=== PATIENT | male | born 1955 | race American Indian/Alaskan Native ===

== ENCOUNTER 2016-11-15 21:24 | Emergency (ER) | payer MEDICARE ==
[2016-11-15 22:17] LABS: Eosinophils % (Auto) 7.1 % (0.0-4.3); Hematocrit 44.4 % (35.5-45.6); Mean Corpuscular HGB Conc 34 % (32-34); Mean Corpuscular Hemoglobin 31 pg (28-32); Mean Corpuscular Volume 92 fl (84-94); Platelet Count 196 K/mm3 (140-440); Red Blood Count 4.82 M/mm3 (3.65-5.03); Red Cell Distribution Width 14.3 % (13.2-15.2); White Blood Count 7.8 K/mm3 (4.5-11.0)
[2016-11-15 22:35] LABS: Anion Gap 17 mmol/L; BUN/Creatinine Ratio 24.28; Blood Urea Nitrogen 17 mg/dL (9-20); Calcium 8.6 mg/dL (8.4-10.2); Carbon Dioxide 25 mmol/L (22-30); Chloride 100.7 mmol/L (98-107); Glucose 124 mg/dL (75-100); Potassium 3.9 mmol/L (3.6-5.0); Sodium 139 mmol/L (137-145)
[2016-11-15 22:53] LABS: Urine Drugs of Abuse Note Disclamer
[2016-11-15 23:02] LABS: Bilirubin,Urine NEG (Negative); Blood,Urine SM (Negative); Ketones,Urine NEG (Negative); Leukocyte Esterase,Urine NEG (Negative); Mucus,Urine FEW /HPF; Nitrite,Urine NEG (Negative); Protein,Urine <15 mg/dL mg/dL (Negative); Urobilinogen,Urine < 2.0 mg/dL (<2.0)
--- NOTE | 2016-11-16 13:14 | Emergency Department Report ---
ED General Adult HPI - General Chief complaint: Psych Stated complaint: MH EVAL/HEAD PAIN Time Seen by Provider: 11/16/16 06:25 Source: patient Mode of arrival: Ambulatory Limitations: No Limitations - History of Present Illness Initial comments: Patient tells me he "just needs a new home". He is schizophrenic. He states that he has a variety of obviously chronic somatic symptoms. He complains of a headache since "1973". He also states he has a lump below his sternum. He does not complain of chest pain shortness of breath or any other associated symptoms. -: unknown Location: head, chest (chronic chronic chest "lump") Quality: other Consistency: intermittent Improves with: none Worsens with: none Associated Symptoms: denies other symptoms Treatments Prior to Arrival: none - Related Data Previous Rx's Medication Instructions Recorded Last Taken Type Azithromycin [Zithromax TAB] 500 mg PO QDAY #3 tablet 02/16/15 Unknown Rx Ondansetron [Zofran Odt] 4 mg PO Q4H PRN #10 tab.rapdis 02/16/15 Unknown Rx HYDROcodone/APAP 5-325 [[place] 1 each PO Q6HR PRN #18 tablet 04/27/15 Unknown Rx 5/325] Ibuprofen [Motrin] 800 mg PO Q8HR PRN #30 tablet 04/27/15 Unknown Rx Allergies Allergy/AdvReac Type Severity Reaction Status Date / Time No Known Allergies Allergy Unverified 02/16/15 08:20 ED Review of Systems ROS: Stated complaint: MH EVAL/HEAD PAIN Other details as noted in HPI Constitutional: denies: chills, fever Eyes: denies: eye pain, eye discharge, vision change ENT: denies: ear pain, throat pain Respiratory: denies: cough, shortness of breath, wheezing Cardiovascular: denies: chest pain, palpitations Endocrine: no symptoms reported Gastrointestinal: denies: abdominal pain, nausea, diarrhea Genitourinary: denies: urgency, dysuria Musculoskeletal: denies: back pain, joint swelling, arthralgia Skin: denies: rash, lesions Neurological: denies: headache, weakness, paresthesias Psychiatric: denies: anxiety, depression Hematological/Lymphatic: denies: easy bleeding, easy bruising ED Past Medical Hx - Past Medical History Previous Medical History?: Yes Hx Diabetes: Yes Hx Psychiatric Treatment: Yes (schizophrenia) - Surgical History Past Surgical History?: No - Social History Smoking Status: Current Some Day Smoker Substance Use Type: Alcohol - Medications Home Medications: Home Medications Medication Instructions Recorded Confirmed Last Taken Type Azithromycin [Zithromax TAB] 500 mg PO QDAY #3 tablet 02/16/15 11/16/16 Unknown Rx Ondansetron [Zofran Odt] 4 mg PO Q4H PRN #10 tab.rapdis 02/16/15 11/16/16 Unknown Rx HYDROcodone/APAP 5-325 [[place] 1 each PO Q6HR PRN #18 tablet 04/27/15 11/16/16 Unknown Rx 5/325] Ibuprofen [Motrin] 800 mg PO Q8HR PRN #30 tablet 04/27/15 11/16/16 Unknown Rx ED Physical Exam - General Limitations: No Limitations General appearance: alert, in no apparent distress - Head Head exam: Present: atraumatic, normocephalic - Eye Eye exam: Present: normal appearance - ENT ENT exam: Present: mucous membranes moist - Neck Neck exam: Present: normal inspection - Respiratory Respiratory exam: Present: normal lung sounds bilaterally. Absent: respiratory distress - Cardiovascular Cardiovascular Exam: Present: regular rate, normal rhythm. Absent: systolic murmur, diastolic murmur, rubs, gallop - GI/Abdominal GI/Abdominal exam: Present: soft, normal bowel sounds. Absent: distended, tenderness, guarding, rebound, rigid - Rectal Rectal exam: Present: deferred - Extremities Exam Extremities exam: Present: normal inspection - Back Exam Back exam: Present: normal inspection - Neurological Exam Neurological exam: Present: alert, oriented X3, CN II-XII intact. Absent: motor sensory deficit - Psychiatric Psychiatric exam: Present: normal mood, flat affect - Skin Skin exam: Present: warm, dry, intact, normal color. Absent: rash ED Course Vital Signs 11/15/16 11/16/16 21:32 01:30 Temperature 98.9 F 98.4 F Pulse Rate 67 65 Respiratory 20 20 Rate Blood Pressure 116/70 Blood Pressure 147/105 [Right] O2 Sat by Pulse 97 98 Oximetry - Reevaluation(s) Reevaluation #1: Patient is not suicidal nor homicidal. Therefore I requested a case management consult. The high school social studies teacher told me that she got a variety of apparently conflicting information from this patient. He states that he lives with his now and that she works at a construction company. So far she has not been able to track anyone down. I came to the conclusion that the patient may just be a schizophrenic and require placement thereof. Therefore and in agreement with supervisor case loading E have consult to mental health. 11/16/16 13:09 ED Medical Decision Making - Lab Data Result diagrams: 11/15/16 22:04 11/15/16 22:04 Laboratory Results - last 24 hr 11/15/16 11/15/16 11/15/16 22:04 22:04 22:04 WBC 7.8 RBC 4.82 Hgb 15.0 Hct 44.4 MCV 92 MCH 31 MCHC 34 RDW 14.3 Plt Count 196 Lymph % (Auto) 31.4 [place] % (Auto) 11.2 H Eos % (Auto) 7.1 H Baso % (Auto) 1.0 Lymph # 2.5 [place] # 0.9 H Eos # 0.6 H Baso # 0.1 Seg Neutrophils % 49.3 Seg Neutrophils # 3.9 Sodium 139 Potassium 3.9 Chloride 100.7 Carbon Dioxide 25 Anion Gap 17 BUN 17 Creatinine 0.7 L Estimated GFR > 60 BUN/Creatinine Ratio 24.28 Glucose 124 H Calcium 8.6 Troponin T Urine Color Urine Turbidity Urine pH Ur Specific [place] Urine Protein Urine Glucose (UA) Urine Ketones Urine Blood Urine Nitrite Urine Bilirubin Urine Urobilinogen Ur Leukocyte Esterase Urine WBC (Auto) Urine RBC (Auto) Urine Mucus Urine Opiates Screen Urine Methadone Screen Ur Barbiturates Screen Ur Phencyclidine Scrn Ur Amphetamines Screen U Benzodiazepines Scrn Urine Cocaine Screen U Marijuana (THC) Screen Drugs of Abuse Note Plasma/Serum Alcohol < 0.01 11/15/16 11/15/16 11/15/16 22:04 22:19 22:19 WBC RBC Hgb Hct MCV MCH MCHC RDW Plt Count Lymph % (Auto) [place] % (Auto) Eos % (Auto) Baso % (Auto) Lymph # [place] # Eos # Baso # Seg Neutrophils % Seg Neutrophils # Sodium Potassium Chloride Carbon Dioxide Anion Gap BUN Creatinine Estimated GFR BUN/Creatinine Ratio Glucose Calcium Troponin T < 0.010 Urine Color Yellow Urine Turbidity Clear Urine pH 6.0 Ur Specific [place] 1.017 Urine Protein <15 mg/dl Urine Glucose (UA) Neg Urine Ketones Neg Urine Blood Sm Urine Nitrite Neg Urine Bilirubin Neg Urine Urobilinogen < 2.0 Ur Leukocyte Esterase Neg Urine WBC (Auto) 1.0 Urine RBC (Auto) 2.0 Urine Mucus Few Urine Opiates Screen Presumptive negative Urine Methadone Screen Presumptive negative Ur Barbiturates Screen Presumptive negative Ur Phencyclidine Scrn Presumptive negative Ur Amphetamines Screen Presumptive negative U Benzodiazepines Scrn Presumptive negative Urine Cocaine Screen Presumptive negative U Marijuana (THC) Screen Presumptive negative Drugs of Abuse Note Disclamer Plasma/Serum Alcohol Critical care attestation.: If time is entered above; I have spent that time in minutes in the direct care of this critically ill patient, excluding procedure time. ED Disposition Clinical Impression: Schizophrenia Qualifiers: Schizophrenia type: unspecified Qualified Code(s): F20.9 - Schizophrenia, unspecified Disposition: [id number]/TX-65 PSY HOSP/PSY UNIT Is pt being admited?: No Does the pt Need Aspirin: No Condition: Stable Referrals: PRIMARY CARE, [Primary Care Provider] - 3-5 Days Time of Disposition: 13:15
[2016-11-16] MEDS ORDERED: MILK OF MAGNESIA PO PRN (13:15)
[2016-11-16] MEDS ORDERED: ALUM-MAG HYDROX-SIMETH 200-200-20MG/5ML PO PRN (13:15)
[2016-11-16] MEDS: GEODON PO SCH ×2 (16:26→23:39)
[2016-11-17] MEDS: GEODON PO SCH ×2 (09:59→22:30)
--- NOTE | 2016-11-17 15:47 | Consultation ---
History of Present Illness - Reason for Consult Consult date: 11/17/16 Reason for consult: Mental Health Evaluation Requesting physician: COREEN IBRAHIM - Chief Complaint Chief complaint: "I want somewhere to stay" - History of Present Psychiatric Illness 61 y.o. AA male presenting to [facility] for pain. Psychiatry was consulted to see patient because he stated having an headache since "1973." Today patient calm and cooperative during the assessment. He stated he was homeless and that's why he came to the hospital. He could not tell me his previous address. He stated that he has schizophrenia. Patient was seen completing his ADL's. Per the RN, no behavioral disturbance overnight. He denies SI/HI's, AVH's, depression. He denies recreational drug use and excessive alcohol consumption (etoh). He denies any side effects of his medication. Medications and Allergies Allergies Allergy/AdvReac Type Severity Reaction Status Date / Time No Known Allergies Allergy Unverified 02/16/15 08:20 Home Medications Medication Instructions Recorded Confirmed Last Taken Type Azithromycin [Zithromax TAB] 500 mg PO QDAY #3 tablet 02/16/15 11/16/16 Unknown Rx Ondansetron [Zofran Odt] 4 mg PO Q4H PRN #10 tab.rapdis 02/16/15 11/16/16 Unknown Rx HYDROcodone/APAP 5-325 [[place] 1 each PO Q6HR PRN #18 tablet 04/27/15 11/16/16 Unknown Rx 5/325] Ibuprofen [Motrin] 800 mg PO Q8HR PRN #30 tablet 04/27/15 11/16/16 Unknown Rx Active Meds: Active Medications Acetaminophen (Tylenol) 650 mg PO Q4HR PRN PRN Reason: Pain MILD(1-3)/Fever >100.5/RAMOS Al Hydrox/Mg Hydrox/Simethicone (Alum-Mag Hydrox-Simeth [id number]/5ml) 30 ml PO Q4HR PRN PRN Reason: Indigestion Magnesium Hydroxide (Milk Of Magnesia) 30 ml PO Q12HR PRN PRN Reason: Constipation Ziprasidone (Geodon) 20 mg PO BID RUI Last Admin: 11/17/16 09:59 Dose: 20 mg Past psychiatric history - Past Medical History Past Medical History: other (Generalized pain) Past Surgical History: No surgical history - past Psychiatric treatment and history Psych: Schizophrenia psychiatric treatment history: Multiple inpatient psy services. Denies a fam psy hx. - Social History Social history: other (Homeless) Mental Status Exam - Vital signs Last Vital Signs Temp 98.2 F 11/17/16 08:08 Pulse 58 L 11/17/16 08:08 Resp 20 11/17/16 08:08 BP 141/80 11/17/16 08:08 Pulse Ox 100 11/17/16 08:08 - Exam Narrative exam: ROS: (-) psychosis MSE: Appearance: calm, cooperative Behavior: regular eye contact Speech: regular rate and tone Mood: "well" Affect: congruent to mood Thought Process: circumstantial Thought Content: denies SI/HI's and AVH's Motor Activity: lying in bed Cognition: A/Ox 3 Insight: variable Judgment: fair Results Result Diagrams: 11/15/16 22:04 11/15/16 22:04 All other labs normal. Assessment and Plan Assessment and plan: Impression: Historical Dx: Shizophrenia. Today patient calm and cooperative during the assessment. Patient is homeless. Recommendation/Plan: Social Involvement, patient need placement. Continue Geodon 20 mg PO BID for Schizophrenia. Discussed possible metabolic side effects of Geodon with patient.
[2016-11-17] MEDS: TYLENOL PO PRN (22:45)
[2016-11-18] MEDS: GEODON PO SCH ×2 (10:38→22:50)
--- NOTE | 2016-11-18 12:17 | Progress Note ---
Subjective - Reason for Consult Consult date: 11/18/16 Reason for consult: follow up - Chief Complaint Chief complaint: "I don't know." 61 y.o. AA male presented to [facility] for pain. Psychiatry was consulted to see patient because he stated having an headache since "1973." Today patient calm and cooperative during the assessment.He is reportedly homeless. He could not tell me his previous address or how to reach his daughter. He stated that he has schizophrenia and memory problems. Patient was seen completing his ADL's. No behavioral disturbances reported. He denies SI/HI's, AVH's, depression. He states he does not know what year it is. He states the president is [place]. Mental Status Exam - Vital signs Last Vital Signs Temp 97.9 F 11/18/16 09:00 Pulse 62 11/18/16 09:00 Resp 18 11/18/16 09:00 BP 123/70 11/18/16 09:00 Pulse Ox 99 11/18/16 09:00 Assessment and Plan ROS: (-) psychosis MSE: Appearance: calm, cooperative Behavior: regular eye contact Speech: regular rate and tone Mood: "I don't know." Affect: congruent to mood Thought Process: circumstantial Thought Content: denies SI/HI's and AVH's Motor Activity: slow gait Cognition: A/Ox 3 Insight: variable Judgment: fair Assessment and plan: Impression: Historical Dx: Schizophrenia. Today patient calm and cooperative during the assessment. Patient is homeless. His condition will likely not improve with inpatient psychiatric treatment. Recommendation/Plan: Social Involvement, patient needs placement. Continue Geodon 20 mg PO BID for Schizophrenia. Discussed possible metabolic side effects of Geodon with patient.
[2016-11-19] MEDS: GEODON PO SCH ×2 (10:47→22:24)
--- NOTE | 2016-11-19 15:46 | Progress Note ---
Subjective - Reason for Consult Consult date: 11/19/16 Reason for consult: follow up - Chief Complaint Chief complaint: "My and I had an argument." 61 y.o. AA male presented to [facility] for pain. Psychiatry was consulted to see patient because he stated having an headache since "1973." Today patient calm and cooperative during the assessment.He is reportedly homeless bu denies this. He acknowledges having a and the nurse states she called this morning. He talked to her but did not obtain the number. He states they had an argument and that is why he brought to the hospital. He states she will let him go back home. He states her name is Dulce. Patient was seen completing his ADL's. No behavioral disturbances reported. He denies SI/HI's, AVH's, depression. His memory remains impaired but he is aware he is in a hospital and was able to voice his desire to go home. Mental Status Exam - Vital signs Last Vital Signs Temp 97.8 F 11/19/16 10:05 Pulse 60 11/19/16 10:05 Resp 18 11/19/16 10:05 BP 115/63 11/19/16 10:05 Pulse Ox 97 11/19/16 10:05 Assessment and Plan ROS: (-) psychosis MSE: Appearance: calm, cooperative Behavior: regular eye contact Speech: regular rate and tone Mood: "good" Affect: congruent to mood Thought Process: circumstantial Thought Content: denies SI/HI's and AVH's Motor Activity: slow gait Cognition: A/Ox 3 Insight: variable Judgment: fair Assessment and plan: Impression: Historical Dx: Schizophrenia. Today patient calm and cooperative during the assessment. It is unclear where the patient lives. Someone identified herself as his and spoke with him today. A number is not available. His condition will likely not improve with inpatient psychiatric treatment. Recommendation/Plan: Social Involvement, patient needs placement. Continue Geodon 20 mg PO BID for Schizophrenia. Discussed possible metabolic side effects of Geodon with patient.
[2016-11-19] MEDS: TYLENOL PO PRN (22:24)
[2016-11-20 08:32] VITALS: BP 121/72
--- NOTE | 2016-11-20 12:48 | Progress Note ---
Subjective - Reason for Consult Consult date: 11/20/16 Reason for consult: Psychiatry Follow-up - Chief Complaint Chief complaint: "Will I be leaving today" 61 y.o. AA male presented to [facility] for pain. Psychiatry was consulted to see patient because he stated having an headache since "1973." Today patient calm and cooperative during the assessment. He again acknowledged having a . He denies SI/HI's, AVH's, depression. Mental Status Exam - Vital signs Last Vital Signs Temp 98.7 F 11/20/16 08:31 Pulse 54 L 11/20/16 08:31 Resp 15 11/20/16 08:32 BP 121/72 11/20/16 08:31 Pulse Ox 96 11/20/16 08:32 - Exam Narrative exam: MSE: Appearance: calm, cooperative Behavior: regular eye contact Speech: regular rate and tone Mood: "well" Affect: congruent to mood Thought Process: linear Thought Content: denies SI/HI's and AVH's Motor Activity: slow gait Cognition: A/Ox 3 Insight: fair Judgment: fair Assessment and Plan Impression: Historical Dx: Schizophrenia. Today patient calm and cooperative during the assessment. Recommendation/Plan: Social Involvement, patient needs placement. Continue Geodon 20 mg PO BID for Schizophrenia. Discussed possible metabolic side effects of Geodon with patient.
== END 2016-11-20 10:17 | disposition home or self-care (01) ==
LOC: ED 21:24 → EEVIPCON 21:24 → ED 11-20 10:17
DX: F20.9 Schizophrenia, unspecified (principal); E11.9 Type 2 diabetes mellitus without complications; F17.200 Nicotine dependence, unspecified, uncomplicated
CPT/HCPCS: 36415; 80048; 80307; 81001; 84484; 85025; 99284; G0480; 80320

== ENCOUNTER 2017-03-17 14:18 | Emergency (ER) | payer MEDICARE ==
[2017-03-17 14:50] LABS: Urine Drugs of Abuse Note Disclamer
[2017-03-17 15:13] LABS: Hematocrit 44.2 % (35.5-45.6); Hemoglobin 14.6 gm/dl (11.8-15.2); Mean Corpuscular HGB Conc 33 % (32-34); Mean Corpuscular Hemoglobin 31 pg (28-32); Mean Corpuscular Volume 95 fl (84-94); Platelet Count 241 K/mm3 (140-440); Red Blood Count 4.68 M/mm3 (3.65-5.03); Red Cell Distribution Width 14.3 % (13.2-15.2); White Blood Count 8.9 K/mm3 (4.5-11.0)
[2017-03-17 15:16] LABS: Bilirubin,Urine NEG (Negative); Blood,Urine SM (Negative); Ketones,Urine NEG (Negative); Leukocyte Esterase,Urine NEG (Negative); Mucus,Urine FEW /HPF; Nitrite,Urine NEG (Negative); Protein,Urine <15 mg/dL mg/dL (Negative); Urobilinogen,Urine < 2.0 mg/dL (<2.0)
[2017-03-17 15:29] LABS: Anion Gap 16 mmol/L; BUN/Creatinine Ratio 23; Blood Urea Nitrogen 16 mg/dL (9-20); Calcium 8.7 mg/dL (8.4-10.2); Carbon Dioxide 24 mmol/L (22-30); Chloride 105.2 mmol/L (98-107); Glucose 156 mg/dL (75-100); Potassium 4.3 mmol/L (3.6-5.0); Sodium 141 mmol/L (137-145)
[2017-03-17 16:01] LABS: Basophils % (Manual) 0 % (0.0-1.8); Blastocytes % (Manual) 0 %
[2017-03-17 16:02] LABS: Anisocytosis 1+
[2017-03-17 16:03] LABS: Diff Status Complete
--- NOTE | 2017-03-17 19:25 | Emergency Department Report ---
ED Psych HPI - General Chief Complaint: Psych Stated Complaint: MENTAL HEALTH EVALUATION Time Seen by Provider: 03/17/17 16:15 Source: patient Mode of arrival: Ambulatory Limitations: Other - History of Present Illness Initial Comments: 62-year-old male with a past medical history of diabetes and schizophrenia presents to the hospital with acute psychosis. Patient has been off of his psychiatric medication for months because he threw them out. Patient states he them out because he is "not a drug addict". Patient wants to kill his and his 's boyfriends. 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 He denies any physical complaints at this time. - Related Data Previous Rx's Medication Instructions Recorded Last Taken Type Azithromycin [Zithromax TAB] 500 mg PO QDAY #3 tablet 02/16/15 Unknown Rx Ondansetron [Zofran Odt] 4 mg PO Q4H PRN #10 tab.rapdis 02/16/15 Unknown Rx HYDROcodone/APAP 5-325 [[place] 1 each PO Q6HR PRN #18 tablet 04/27/15 Unknown Rx 5/325] Ibuprofen [Motrin] 800 mg PO Q8HR PRN #30 tablet 04/27/15 Unknown Rx Allergies Allergy/AdvReac Type Severity Reaction Status Date / Time No Known Allergies Allergy Verified 03/17/17 14:36 ED Review of Systems ROS: Stated complaint: MENTAL HEALTH EVALUATION Other details as noted in HPI Comment: All other systems reviewed and negative Other: Constitutional: No fevers chills Eyes: No eye pain ENT: No ear pain or throat pain Neck: Denies pain Respiratory: Denies cough Cardiovascular: Denies chest pain GI: Denies abdominal pain : Denies dysuria Musculoskeletal: Denies back pain Skin: Denies rash Neurologic: Denies headache, numbness, weakness Psychiatric: Denies suicidal ideation, hallucinations ED Past Medical Hx - Past Medical History Hx Diabetes: Yes Hx Psychiatric Treatment: Yes (schizophrenia) - Social History Smoking Status: Current Every Day Smoker Substance Use Type: Alcohol - Medications Home Medications: Home Medications Medication Instructions Recorded Confirmed Last Taken Type Azithromycin [Zithromax TAB] 500 mg PO QDAY #3 tablet 02/16/15 11/16/16 Unknown Rx Ondansetron [Zofran Odt] 4 mg PO Q4H PRN #10 tab.rapdis 02/16/15 11/16/16 Unknown Rx HYDROcodone/APAP 5-325 [[place] 1 each PO Q6HR PRN #18 tablet 04/27/15 11/16/16 Unknown Rx 5/325] Ibuprofen [Motrin] 800 mg PO Q8HR PRN #30 tablet 04/27/15 11/16/16 Unknown Rx ED Physical Exam - General Limitations: No Limitations - Other Other exam information: General: No limitations, patient is alert in no acute distress Head exam: Atraumatic, normocephalic Eyes exam: Normal appearance ENT: Moist mucous membrane, normal oropharynx Neck exam: Normal inspection, full range of motion, no meningismus nontender Respiratory exam: Clear to auscultation bilateral, no wheezes, rales, crackles Cardiovascular: Normal rate and rhythm, normal heart sounds Abdomen: Soft, nondistended, and nontender, with normal bowel sounds, no rebound, or guarding Extremity: Full range of motion normal inspection no deformity Back: Normal Inspection, full range of motion, no tenderness Neurologic: Alert, oriented x3, cranial nerves intact, no motor or sensory deficit Psychiatric: paranoid delusion, agitated at times Skin: Warm, dry, intact ED Course Vital Signs 03/17/17 03/17/17 03/17/17 14:38 16:19 16:23 Temperature 99 F 98.3 F Pulse Rate 72 61 60 Respiratory 18 12 18 Rate Blood Pressure 182/74 Blood Pressure 125/67 [Left] O2 Sat by Pulse 98 99 Oximetry 03/17/17 03/17/17 03/17/17 16:31 16:45 17:01 Temperature Pulse Rate 61 61 66 Respiratory 18 16 12 Rate Blood Pressure 125/67 125/67 139/74 Blood Pressure [Left] O2 Sat by Pulse 98 100 100 Oximetry 03/17/17 03/17/17 03/17/17 17:15 17:31 17:45 Temperature Pulse Rate 62 65 67 Respiratory 12 21 14 Rate Blood Pressure 139/74 139/74 139/74 Blood Pressure [Left] O2 Sat by Pulse 96 100 100 Oximetry ED Medical Decision Making - Lab Data Result diagrams: 03/17/17 14:59 03/17/17 14:59 Lab Results 03/17/17 03/17/17 03/17/17 Range/Units 14:44 14:44 14:59 WBC (4.5-11.0) K/mm3 RBC (3.65-5.03) M/mm3 Hgb (11.8-15.2) gm/dl Hct (35.5-45.6) % MCV (84-94) fl MCH (28-32) pg MCHC (32-34) % RDW (13.2-15.2) % Plt Count (140-440) K/mm3 Baso % (Auto) Add Manual Diff Total Counted Seg Neuts % (Manual) (40.0-70.0) % Band Neutrophils % % Lymphocytes % (Manual) (13.4-35.0) % Reactive Lymphs % (Man) % Monocytes % (Manual) (0.0-7.3) % Eosinophils % (Manual) (0.0-4.3) % Basophils % (Manual) (0.0-1.8) % Metamyelocytes % % Myelocytes % % Promyelocytes % % Blast Cells % % Nucleated RBC % Seg Neutrophils # Man (1.8-7.7) K/mm3 Band Neutrophils # K/mm3 Lymphocytes # (Manual) (1.2-5.4) K/mm3 Abs React Lymphs (Man) K/mm3 Monocytes # (Manual) (0.0-0.8) K/mm3 Eosinophils # (Manual) (0.0-0.4) K/mm3 Basophils # (Manual) (0.0-0.1) K/mm3 Metamyelocytes # K/mm3 Myelocytes # K/mm3 Promyelocytes # K/mm3 Blast Cells # K/mm3 WBC Morphology Hypersegmented Neuts Hyposegmented Neuts Hypogranular Neuts Smudge Cells Toxic Granulation Toxic Vacuolation Dohle Bodies Pelger-Huet Anomaly Marlo Rods Platelet Estimate Clumped Platelets Plt Clumps, EDTA Large Platelets Giant Platelets Platelet Satelliting Plt Morphology Comment RBC Morphology Dimorphic RBCs Polychromasia Hypochromasia Poikilocytosis Anisocytosis Microcytosis Macrocytosis Spherocytes Pappenheimer Bodies Sickle Cells Target Cells Tear Drop Cells Ovalocytes Helmet Cells [place] Bodies [place] Rings [place] Cells Bite Cells Crenated Cell Elliptocytes Acanthocytes (Spur) Rouleaux Hemoglobin C Crystals Schistocytes Malaria parasites Barry Bodies Hem Pathologist Commnt Sodium 141 (137-145) mmol/L Potassium 4.3 (3.6-5.0) mmol/L Chloride 105.2 (98-107) mmol/L Carbon Dioxide 24 (22-30) mmol/L Anion Gap 16 mmol/L BUN 16 (9-20) mg/dL Creatinine 0.7 L (0.8-1.5) mg/dL Estimated GFR > 60 ml/min BUN/Creatinine Ratio 23 % Glucose 156 H (75-100) mg/dL Calcium 8.7 (8.4-10.2) mg/dL Urine Color Yellow (Yellow) Urine Turbidity Clear (Clear) Urine pH 5.0 (5.0-7.0) Ur Specific [place] 1.026 (1.003-1.030) Urine Protein <15 mg/dl (Negative) mg/dL Urine Glucose (UA) Neg (Negative) mg/dL Urine Ketones Neg (Negative) mg/dL Urine Blood Sm (Negative) Urine Nitrite Neg (Negative) Urine Bilirubin Neg (Negative) Urine Urobilinogen < 2.0 (<2.0) mg/dL Ur Leukocyte Esterase Neg (Negative) Urine WBC (Auto) 1.0 (0.0-6.0) /HPF Urine RBC (Auto) 4.0 (0.0-6.0) /HPF U Epithel Cells (Auto) < 1.0 (0-13.0) /HPF Urine Mucus Few /HPF Urine Opiates Screen Presumptive negative Urine Methadone Screen Presumptive negative Ur Barbiturates Screen Presumptive negative Ur Phencyclidine Scrn Presumptive negative Ur Amphetamines Screen Presumptive negative U Benzodiazepines Scrn Presumptive negative Urine Cocaine Screen Presumptive negative U Marijuana (THC) Screen Presumptive negative Drugs of Abuse Note Disclamer Plasma/Serum Alcohol (0-0.07) gm% 17 03/17/17 Range/Units 14:59 14:59 WBC 8.9 (4.5-11.0) K/mm3 RBC 4.68 (3.65-5.03) M/mm3 Hgb 14.6 (11.8-15.2) gm/dl Hct 44.2 (35.5-45.6) % MCV 95 H (84-94) fl MCH 31 (28-32) pg MCHC 33 (32-34) % RDW 14.3 (13.2-15.2) % Plt Count 241 (140-440) K/mm3 Baso % (Auto) Framework Developer Add Manual Diff Complete Total Counted 100 Seg Neuts % (Manual) 56.0 (40.0-70.0) % Band Neutrophils % 0 % Lymphocytes % (Manual) 22.0 (13.4-35.0) % Reactive Lymphs % (Man) 0 % Monocytes % (Manual) 13.0 H (0.0-7.3) % Eosinophils % (Manual) 9.0 H (0.0-4.3) % Basophils % (Manual) 0 (0.0-1.8) % Metamyelocytes % 0 % Myelocytes % 0 % Promyelocytes % 0 % Blast Cells % 0 % Nucleated RBC % Not Reportable Seg Neutrophils # Man 5.0 (1.8-7.7) K/mm3 Band Neutrophils # 0.0 K/mm3 Lymphocytes # (Manual) 2.0 (1.2-5.4) K/mm3 Abs React Lymphs (Man) 0.0 K/mm3 Monocytes # (Manual) 1.2 H (0.0-0.8) K/mm3 Eosinophils # (Manual) 0.8 H (0.0-0.4) K/mm3 Basophils # (Manual) 0.0 (0.0-0.1) K/mm3 Metamyelocytes # 0.0 K/mm3 Myelocytes # 0.0 K/mm3 Promyelocytes # 0.0 K/mm3 Blast Cells # 0.0 K/mm3 WBC Morphology Not Reportable Hypersegmented Neuts Not Reportable Hyposegmented Neuts Not Reportable Hypogranular Neuts Not Reportable Smudge Cells Not Reportable Toxic Granulation Not Reportable Toxic Vacuolation Not Reportable Dohle Bodies Not Reportable Pelger-Huet Anomaly Not Reportable Marlo Rods Not Reportable Platelet Estimate Appears normal Clumped Platelets Not Reportable Plt Clumps, EDTA Not Reportable Large Platelets Not Reportable Giant Platelets Not Reportable Platelet Satelliting Not Reportable Plt Morphology Comment Not Reportable RBC Morphology Not Reportable Dimorphic RBCs Not Reportable Polychromasia Not Reportable Hypochromasia Not Reportable Poikilocytosis Not Reportable Anisocytosis 1+ Microcytosis Not Reportable Macrocytosis Not Reportable Spherocytes Not Reportable Pappenheimer Bodies Not Reportable Sickle Cells Not Reportable Target Cells Not Reportable Tear Drop Cells Not Reportable Ovalocytes Not Reportable Helmet Cells Not Reportable [place] Bodies Not Reportable [place] Rings Not Reportable [place] Cells Not Reportable Bite Cells Not Reportable Crenated Cell Not Reportable Elliptocytes Not Reportable Acanthocytes (Spur) Not Reportable Rouleaux Not Reportable Hemoglobin C Crystals Not Reportable Schistocytes Not Reportable Malaria parasites Not Reportable Barry Bodies Not Reportable Hem Pathologist Commnt No Sodium (137-145) mmol/L Potassium (3.6-5.0) mmol/L Chloride (98-107) mmol/L Carbon Dioxide (22-30) mmol/L Anion Gap mmol/L BUN (9-20) mg/dL Creatinine (0.8-1.5) mg/dL Estimated GFR ml/min BUN/Creatinine Ratio % Glucose (75-100) mg/dL Calcium (8.4-10.2) mg/dL Urine Color (Yellow) Urine Turbidity (Clear) Urine pH (5.0-7.0) Ur Specific [place] (1.003-1.030) Urine Protein (Negative) mg/dL Urine Glucose (UA) (Negative) mg/dL Urine Ketones (Negative) mg/dL Urine Blood (Negative) Urine Nitrite (Negative) Urine Bilirubin (Negative) Urine Urobilinogen (<2.0) mg/dL Ur Leukocyte Esterase (Negative) Urine WBC (Auto) (0.0-6.0) /HPF Urine RBC (Auto) (0.0-6.0) /HPF U Epithel Cells (Auto) (0-13.0) /HPF Urine Mucus /HPF Urine Opiates Screen Urine Methadone Screen Ur Barbiturates Screen Ur Phencyclidine Scrn Ur Amphetamines Screen U Benzodiazepines Scrn Urine Cocaine Screen U Marijuana (THC) Screen Drugs of Abuse Note Plasma/Serum Alcohol < 0.01 (0-0.07) gm% - Medical Decision Making pt needs psychiatric stabilization for acute psychosis with homicidal ideation Patient's initial BP elevated but improved spontaneously without treatment. No previous history of hypertension and blood pressures during previous visit within normal range. Patient is medically cleared When necessary Kathleen ordered 1013 and transfer forms signed Critical Care Time: No Critical care attestation.: If time is entered above; I have spent that time in minutes in the direct care of this critically ill patient, excluding procedure time. ED Disposition Clinical Impression: Acute schizophrenia, Psychosis, Paranoid delusion, Homicidal ideation, Medical clearance for psychiatric admission Disposition: DC/TX-65 PSY HOSP/PSY UNIT Is pt being admited?: No Condition: Stable Time of Disposition: 19:30 (awaiting acceptance)
[2017-03-17] MEDS ORDERED: GEODON IM PRN (19:27)
[2017-03-18 02:52] VITALS: BP 109/53
== END 2017-03-18 06:45 ==
LOC: EEVIPCON 14:18 → ED 14:18
DX: F20.9 Schizophrenia, unspecified (principal); F22 Delusional disorders; R45.850 Homicidal ideations; F29 Unspecified psychosis not due to a substance or known physiological condition; E11.9 Type 2 diabetes mellitus without complications; F17.200 Nicotine dependence, unspecified, uncomplicated
CPT/HCPCS: 36415; 80048; 80307; 81001; 85007; 85025; 99285; G0480; 80320

== ENCOUNTER 2017-07-05 11:10 | Emergency (ER) | payer MEDICARE ==
[2017-07-05 13:18] LABS: Basophils # (Auto) 0.1 K/mm3 (0.0-0.1); Basophils % (Auto) 0.8 % (0.0-1.8); Eosinophils # (Auto) 0.5 K/mm3 (0.0-0.4); Eosinophils % (Auto) 8.4 % (0.0-4.3); Hematocrit 46.4 % (35.5-45.6); Hemoglobin 15.4 gm/dl (11.8-15.2); Lymphocytes # (Auto) 2.1 K/mm3 (1.2-5.4); Lymphocytes % (Auto) 33.1 % (13.4-35.0); Mean Corpuscular HGB Conc 33 % (32-34); Mean Corpuscular Hemoglobin 31 pg (28-32); Mean Corpuscular Volume 93 fl (84-94); Monocytes # (Auto) 0.8 K/mm3 (0.0-0.8); Monocytes % (Auto) 12.5 % (0.0-7.3); Platelet Count 209 K/mm3 (140-440); Red Blood Count 4.99 M/mm3 (3.65-5.03)
[2017-07-05 13:38] LABS: Bilirubin,Urine NEG (Negative); Blood,Urine NEG (Negative); Color,Urine Yellow (Yellow); Mucus,Urine 2+ /HPF; Protein,Urine <15 mg/dL mg/dL (Negative); WBC,Urine < 1.0 /HPF (0.0-6.0)
[2017-07-05 13:39] LABS: BUN/Creatinine Ratio 16; Blood Urea Nitrogen 11 mg/dL (9-20); Calcium 8.2 mg/dL (8.4-10.2); Hemolysis Index 21
[2017-07-05 13:46] LABS: Amphetamine Screen,Urine PRESUMPTIVE NEGATIVE; Benzodiazepines Screen,Urine PRESUMPTIVE NEGATIVE; Cannabinoid Screen,Urine PRESUMPTIVE NEGATIVE; Cocaine Screen,Urine PRESUMPTIVE NEGATIVE; Methadone Screen,Urine PRESUMPTIVE NEGATIVE; Opiate Screen,Urine PRESUMPTIVE NEGATIVE
--- NOTE | 2017-07-05 15:37 | Emergency Department Report ---
ED Psych HPI - General Chief Complaint: Psych Stated Complaint: MENTAL HEALTH EVALUATION Time Seen by Provider: 07/05/17 15:35 Source: patient, EMS Mode of arrival: Ambulatory - History of Present Illness Initial Comments: Patient is a 62-year-old male with schizophrenia. He is very cooperative with me and not agitated. He states he does not know why he is here. He states occasionally he has a headache and that it responds well to Motrin otherwise he has no complaint whatsoever. He is not actively hallucinating nor apparently paranoid. Apparently the patient was brought in by ambulance. I asked the mental health counselor call his to find out why he was provided. She tells me that his stated that he was acting crazy and threatening her with a knife. His stated that he must be noncompliant with his medication because he usually doesn't act this way. He has a history of paranoid schizophrenia. Complaint: other (homicidal threats) -: unknown Associated Psychiatric Symptoms: homicidal ideation History of same: Yes (history of schizophrenia) Quality: intermittent Improves With: none Worsens With: none Associated Symptoms: headache (occasionally but not currently) Treatments Prior to Arrival: none If Self Harm: other - Related Data Previous Rx's Medication Instructions Recorded Last Taken Type Azithromycin [Zithromax TAB] 500 mg PO QDAY #3 tablet 02/16/15 Unknown Rx Ondansetron [Zofran Odt] 4 mg PO Q4H PRN #10 tab.rapdis 02/16/15 Unknown Rx HYDROcodone/APAP 5-325 [[place] 1 each PO Q6HR PRN #18 tablet 04/27/15 Unknown Rx 5/325] Ibuprofen [Motrin] 800 mg PO Q8HR PRN #30 tablet 04/27/15 Unknown Rx Allergies Allergy/AdvReac Type Severity Reaction Status Date / Time No Known Allergies Allergy Verified 03/17/17 14:36 ED Review of Systems ROS: Stated complaint: MENTAL HEALTH EVALUATION Other details as noted in HPI Constitutional: denies: chills, fever Eyes: denies: eye pain, eye discharge, vision change ENT: denies: ear pain, throat pain Respiratory: denies: cough, shortness of breath, wheezing Cardiovascular: denies: chest pain, palpitations Endocrine: no symptoms reported Gastrointestinal: denies: abdominal pain, nausea, diarrhea Genitourinary: denies: urgency, dysuria Musculoskeletal: denies: back pain, joint swelling, arthralgia Skin: denies: rash, lesions Neurological: denies: headache, weakness Psychiatric: denies: anxiety, depression Hematological/Lymphatic: denies: easy bleeding, easy bruising ED Past Medical Hx - Past Medical History Previous Medical History?: Yes Hx Diabetes: Yes Hx Psychiatric Treatment: Yes (schizophrenia) - Surgical History Past Surgical History?: No - Social History Smoking Status: Current Every Day Smoker - Medications Home Medications: Home Medications Medication Instructions Recorded Confirmed Last Taken Type Azithromycin [Zithromax TAB] 500 mg PO QDAY #3 tablet 02/16/15 11/16/16 Unknown Rx Ondansetron [Zofran Odt] 4 mg PO Q4H PRN #10 tab.rapdis 02/16/15 11/16/16 Unknown Rx HYDROcodone/APAP 5-325 [[place] 1 each PO Q6HR PRN #18 tablet 04/27/15 11/16/16 Unknown Rx 5/325] Ibuprofen [Motrin] 800 mg PO Q8HR PRN #30 tablet 04/27/15 11/16/16 Unknown Rx ED Physical Exam - General Limitations: Other General appearance: alert, in no apparent distress - Head Head exam: Present: atraumatic, normocephalic - Eye Eye exam: Present: normal appearance. Absent: PERRL, EOMI, scleral icterus - ENT ENT exam: Present: mucous membranes moist, other (largely edentulous) - Neck Neck exam: Present: normal inspection. Absent: tenderness, meningismus - Respiratory Respiratory exam: Present: normal lung sounds bilaterally. Absent: respiratory distress - Cardiovascular Cardiovascular Exam: Present: regular rate, normal rhythm. Absent: systolic murmur, diastolic murmur, rubs, gallop - GI/Abdominal GI/Abdominal exam: Present: soft, normal bowel sounds. Absent: distended, tenderness, guarding, rebound, rigid - Rectal Rectal exam: Present: deferred - Extremities Exam Extremities exam: Present: normal inspection - Back Exam Back exam: Present: normal inspection - Neurological Exam Neurological exam: Present: alert, oriented X3, CN II-XII intact. Absent: motor sensory deficit - Psychiatric Psychiatric exam: Present: normal mood, flat affect - Skin Skin exam: Present: warm, dry, intact, normal color. Absent: rash ED Course Vital Signs 07/05/17 12:27 Temperature 97.9 F Pulse Rate 76 Respiratory 18 Rate Blood Pressure 131/77 O2 Sat by Pulse 98 Oximetry - Reevaluation(s) Reevaluation #1: Discussed with mental health counselor. 1013 executed. Awaiting acceptance. 07/05/17 17:08 ED Medical Decision Making - Lab Data Result diagrams: 07/05/17 12:53 07/05/17 12:53 Laboratory Results - last 24 hr 07/05/17 07/05/17 07/05/17 12:53 12:53 12:53 WBC RBC Hgb Hct MCV MCH MCHC RDW Plt Count Lymph % (Auto) [place] % (Auto) Eos % (Auto) Baso % (Auto) Lymph # [place] # Eos # Baso # Seg Neutrophils % Seg Neutrophils # Sodium 139 Potassium 4.6 Chloride 100.9 Carbon Dioxide 25 Anion Gap 18 BUN 11 Creatinine 0.7 L Estimated GFR > 60 BUN/Creatinine Ratio 16 Glucose 135 H Calcium 8.2 L Urine Color Urine Turbidity Urine pH Ur Specific [place] Urine Protein Urine Glucose (UA) Urine Ketones Urine Blood Urine Nitrite Urine Bilirubin Urine Urobilinogen Ur Leukocyte Esterase Urine WBC (Auto) Urine RBC (Auto) Urine Mucus Salicylates < 0.3 L Urine Opiates Screen Urine Methadone Screen Acetaminophen < 5.0 L Ur Barbiturates Screen Ur Phencyclidine Scrn Ur Amphetamines Screen U Benzodiazepines Scrn Urine Cocaine Screen U Marijuana (THC) Screen Drugs of Abuse Note Plasma/Serum Alcohol 07/05/17 07/05/17 07/05/17 12:53 12:53 13:17 WBC 6.3 RBC 4.99 Hgb 15.4 H Hct 46.4 H MCV 93 MCH 31 MCHC 33 RDW 15.0 Plt Count 209 Lymph % (Auto) 33.1 [place] % (Auto) 12.5 H Eos % (Auto) 8.4 H Baso % (Auto) 0.8 Lymph # 2.1 [place] # 0.8 Eos # 0.5 H Baso # 0.1 Seg Neutrophils % 45.2 Seg Neutrophils # 2.9 Sodium Potassium Chloride Carbon Dioxide Anion Gap BUN Creatinine Estimated GFR BUN/Creatinine Ratio Glucose Calcium Urine Color Yellow Urine Turbidity Clear Urine pH 5.0 Ur Specific [place] 1.025 Urine Protein <15 mg/dl Urine Glucose (UA) Neg Urine Ketones Neg Urine Blood Neg Urine Nitrite Neg Urine Bilirubin Neg Urine Urobilinogen 2.0 Ur Leukocyte Esterase Neg Urine WBC (Auto) < 1.0 Urine RBC (Auto) 2.0 Urine Mucus 2+ Salicylates Urine Opiates Screen Urine Methadone Screen Acetaminophen Ur Barbiturates Screen Ur Phencyclidine Scrn Ur Amphetamines Screen U Benzodiazepines Scrn Urine Cocaine Screen U Marijuana (THC) Screen Drugs of Abuse Note Plasma/Serum Alcohol < 0.01 07/05/17 13:17 WBC RBC Hgb Hct MCV MCH MCHC RDW Plt Count Lymph % (Auto) [place] % (Auto) Eos % (Auto) Baso % (Auto) Lymph # [place] # Eos # Baso # Seg Neutrophils % Seg Neutrophils # Sodium Potassium Chloride Carbon Dioxide Anion Gap BUN Creatinine Estimated GFR BUN/Creatinine Ratio Glucose Calcium Urine Color Urine Turbidity Urine pH Ur Specific [place] Urine Protein Urine Glucose (UA) Urine Ketones Urine Blood Urine Nitrite Urine Bilirubin Urine Urobilinogen Ur Leukocyte Esterase Urine WBC (Auto) Urine RBC (Auto) Urine Mucus Salicylates Urine Opiates Screen Presumptive negative Urine Methadone Screen Presumptive negative Acetaminophen Ur Barbiturates Screen Presumptive negative Ur Phencyclidine Scrn Presumptive negative Ur Amphetamines Screen Presumptive negative U Benzodiazepines Scrn Presumptive negative Urine Cocaine Screen Presumptive negative U Marijuana (THC) Screen Presumptive negative Drugs of Abuse Note Disclamer Plasma/Serum Alcohol Critical care attestation.: If time is entered above; I have spent that time in minutes in the direct care of this critically ill patient, excluding procedure time. ED Disposition Clinical Impression: Homicidal behavior Schizophrenia Qualifiers: Schizophrenia type: paranoid schizophrenia Qualified Code(s): F20.0 - Paranoid schizophrenia Disposition: DC/TX-65 PSY HOSP/PSY UNIT Is pt being admited?: No Does the pt Need Aspirin: No Condition: Stable Referrals: PRIMARY CARE, [Primary Care Provider] - 3-5 Days Time of Disposition: 17:09
[2017-07-05 21:51] VITALS: BP 154/78
== END 2017-07-05 21:30 ==
LOC: ED 11:10
DX: F20.0 Paranoid schizophrenia (principal); R45.850 Homicidal ideations; E11.9 Type 2 diabetes mellitus without complications; F17.200 Nicotine dependence, unspecified, uncomplicated
CPT/HCPCS: 36415; 80048; 80307; 81001; 85025; 99285; G0480; 80320

== ENCOUNTER 2017-08-28 10:28 | Inpatient (IN) | payer MEDICARE ==
--- NOTE | 2017-08-28 10:52 | History and Physical Report ---
History of Present Illness Date of examination: 08/28/17 Date of admission: 08/28/17 Chief complaint: Nausea/vomiting History of present illness: Patient is a 62 y/o male with PMH of HTN, DM, and schizophrenia who was directly admitted from PCP office for possible GI bleed. He went to his primary care physician office today and complained of N/V with coffee-ground emesis for the past several days with associated epigastric pain. Patient also complained of black stool. Stool for blood was positive at the PCP office. Denies CP, SOB , dizziness, wt loss, dysphagia, diarrhea, or constipation. Admits to taking Motrin daily at home. No hx of PUD or previous EGD. CT scan obtained prior to admission, results pending. He'll be admitted for further evaluation and management. Past History Past Medical History: diabetes, hypertension, other (schizophrenia) Past Surgical History: No surgical history Family history: No significant history of gastric cancer Social history: smoking Review of System: Constitutional: no fever, no chills, no weight loss Ears, eyes, nose, mouth and throat: no nasal congestion, no nasal discharge, no sinus pressure, no vision change, no red eye. Neck: No neck pain or rigidity. Cardiovascular: No chest pain, no orthopnea, no palpitations, no leg swelling Respiratory: No shortness of breath, no cough, no congestion, no wheezing Gastrointestinal: no abdominal pain, + nausea, + vomiting Genitourinary : no dysuria, no hematuria Musculoskeletal: no joint swelling or muscle ache Integumentary: no rash, no pruritis Neurological: no parathesias, no numbness, no tingling Endocrine: no cold or heat intolerance, no polyuria or polydipsia Hematologic/Lymphatic: no easy bruising, no easy bleeding, no gland swelling Allergic/Immunologic: no urticaria, no angioedema. Medications and Allergies Allergies Allergy/AdvReac Type Severity Reaction Status Date / Time No Known Allergies Allergy Verified 03/17/17 14:36 Home Medications Medication Instructions Recorded Confirmed Last Taken Type Azithromycin [Zithromax TAB] 500 mg PO QDAY #3 tablet 02/16/15 11/16/16 Unknown Rx Ondansetron [Zofran Odt] 4 mg PO Q4H PRN #10 tab.rapdis 02/16/15 11/16/16 Unknown Rx HYDROcodone/APAP 5-325 [[place] 1 each PO Q6HR PRN #18 tablet 04/27/15 11/16/16 Unknown Rx 5/325] Ibuprofen [Motrin] 800 mg PO Q8HR PRN #30 tablet 04/27/15 11/16/16 Unknown Rx Exam - Physical Exam Narrative exam: GENERAL: well-developed and well-nourished male lying on bed appeared to be in no discomfort. HEENT: Normocephalic. Atraumatic. No conjunctival congestion or icterus. Patient has moist mucous membranes. NECK: Supple. Trachea midline. CHEST/LUNGS: Clear to auscultated bilaterally, breathing nonlabored. No wheezes crackles or rhonchi. HEART/CARDIOVASCULAR: Regular in rate and rhythm. S1 and S2 positive. ABDOMEN: Abdomen is soft, nontender. Patient has normal bowel sounds. SKIN: There is no rash. Warm and dry. NEURO: No focal motor deficit. Follows command. MUSCULOSKELETAL: No joint effusion or tenderness. EXTRIMITY: No edema, no cyanosis or clubbing. PSYCH: Cooperative. Results - Labs CBC & Chem 7: 08/30/17 10:30 08/28/17 16:17 - Imaging and Cardiology CT scan - abdomen: pending Assessment and Plan Coffee ground emesis likely due to Upper GI bleed HTN, controlled DM, on oral meds h/o schizophrenia - admit with remote tele - clear liquid diet, trend H/h, protonix BID - consult GI for possible EGD, f/u CT abdomen report - scd for DVT PX, resume home meds, Place on SSI
--- NOTE | 2017-08-28 13:41 | Cat Scan Report ---
FINAL REPORT EXAM: CT ABDOMEN PELVIS W CON HISTORY: EPIGASTRIC PAIN, NAUSEA WITH VOMITING, UNSPECIFIED, ANOREXIA TECHNIQUE: CT of the abdomen and pelvis with IV contrast. Coronal and sagittal reconstructed imaging provided. PRIORS: None currently available. FINDINGS: Linear scarring discoid subsegmental atelectasis at both lung bases. ABDOMEN: Distal 3rd of the esophagus is thick walled. Thickening at the gastroesophageal junction identified. There may be fluid in the narrow distal esophagus. Stomach appears relatively unremarkable. Fatty liver. No suspicious enhancement or lesions. Gallbladder, spleen, pancreas, and adrenals are unremarkable. Kidneys: 7.0 x 5.5 mm stone inferior left kidney. No hydronephrosis. No suspicious lesions. 4 mm stone mid right kidney. No right hydronephrosis or suspicious lesions. IVC is unremarkable. Mild aortic atherosclerotic disease. No aneurysm. No dissection. There is no periaortic or retroperitoneal adenopathy or mass. Ziee-tr-edeavoue stool. No wall thickening or inflammatory changes. Terminal ilium is unremarkable. Appendix is normal. Small bowel loops are unremarkable. No obstructive pattern. No free air. No free fluid. Mesentery is unremarkable. Fat-containing umbilical hernia without strangulation. PELVIS: Prostate does not appear to be enlarged. Bladder is unremarkable. There is no pelvic mass or adenopathy. Inguinal regions are unremarkable. Bones: No suspicious osseous lesions on this limited examination of the skeleton. Metastatic disease better evaluated with bone scan. Degenerative changes are in the spine. IMPRESSION: Esophageal wall thickening of the distal 3rd of the esophagus and at the GE junction. Findings may be related to esophagitis, reflux, or infiltrating tumor. Further evaluation with EGD or esophagogram may be helpful clinically indicated. Fatty liver. Nonobstructing bilateral renal stones.
[2017-08-28] MEDS ORDERED: NACL 0.9% 1000 ML 1,000 ML IV SCH (14:00)
[2017-08-28] MEDS ORDERED: TYLENOL PO PRN (14:44)
[2017-08-28] MEDS ORDERED: ZOFRAN IV PRN (14:44)
[2017-08-28] MEDS ORDERED: SODIUM CHLORIDE FLUSH SYRINGE 10 ML IV PRN (14:44)
[2017-08-28] MEDS ORDERED: MORPHINE IV PRN (14:44)
[2017-08-28 16:47] LABS: Basophils # (Auto) 0.1 K/mm3 (0.0-0.1); Basophils % (Auto) 0.9 % (0.0-1.8); Eosinophils # (Auto) 0.7 K/mm3 (0.0-0.4); Eosinophils % (Auto) 8.8 % (0.0-4.3); Hematocrit 44.9 % (35.5-45.6); Hemoglobin 15.4 gm/dl (11.8-15.2); Lymphocytes # (Auto) 2.2 K/mm3 (1.2-5.4); Lymphocytes % (Auto) 27.1 % (13.4-35.0); Mean Corpuscular HGB Conc 34 % (32-34); Mean Corpuscular Hemoglobin 32 pg (28-32); Mean Corpuscular Volume 94 fl (84-94); Monocytes % (Auto) 12.4 % (0.0-7.3); Platelet Count 181 K/mm3 (140-440); Red Cell Distribution Width 14.9 % (13.2-15.2)
[2017-08-28 16:51] LABS: INR 0.93 (0.87-1.13)
[2017-08-28] MEDS: PROTONIX IV SCH ×2 (17:00→22:49)
[2017-08-28 17:12] LABS: BUN/Creatinine Ratio 11; Blood Urea Nitrogen 9 mg/dL (9-20); Calcium 8.2 mg/dL (8.4-10.2); Hemolysis Index 28
[2017-08-28] MEDS: D5NS 1,000 ML IV SCH (19:32)
[2017-08-28] MEDS: HABITROL TD SCH (22:48)
[2017-08-28] MEDS: SODIUM CHLORIDE FLUSH SYRINGE 10 ML IV SCH (22:49)
--- NOTE | 2017-08-29 09:51 | Gastroenterology Consultation ---
History of Present Illness - Reason for Consult Consult date: 08/29/17 GI bleed Requesting physician: HUGO JAMES - History of Present Illness Patient is a 62 y/o male with PMH of HTN, DM, and schizophrenia who was admitted for a GI bleed. He reports N/V with coffee-ground emesis for the past several days with associated epigastric pain. No active signs of bleeding this am per pt and nursing. No hematemesis, melena, or hematochezia. Denies CP, SOB, dizziness, wt loss, dysphagia, diarrhea, or constipation. Admits to taking Motrin daily at home. No hx of PUD or previous EGD. Past History Past Medical History: diabetes, hypertension, other (schizophrenia) Past Surgical History: No surgical history Social history: smoking Medications and Allergies Allergies Allergy/AdvReac Type Severity Reaction Status Date / Time No Known Allergies Allergy Verified 03/17/17 14:36 Home Medications Medication Instructions Recorded Confirmed Last Taken Type Azithromycin [Zithromax TAB] 500 mg PO QDAY #3 tablet 02/16/15 11/16/16 Unknown Rx Ondansetron [Zofran Odt] 4 mg PO Q4H PRN #10 tab.rapdis 02/16/15 11/16/16 Unknown Rx HYDROcodone/APAP 5-325 [[place] 1 each PO Q6HR PRN #18 tablet 04/27/15 11/16/16 Unknown Rx 5/325] Ibuprofen [Motrin] 800 mg PO Q8HR PRN #30 tablet 04/27/15 11/16/16 Unknown Rx Active Meds: Active Medications Acetaminophen (Tylenol) 650 mg PO Q4H PRN PRN Reason: Pain MILD(1-3)/Fever >100.5/RAMOS Dextrose/Sodium Chloride (D5ns) 1,000 mls @ 100 mls/hr IV DIRECT ON LICENSE OF [facility] Last Admin: 08/28/17 19:32 Dose: 100 mls/hr Influenza Virus Vaccine Quadrival (Fluarix Quad [id number](36 Mos+) 0.5 ml IM .ONCE ONE Stop: 08/29/17 12:01 Morphine Sulfate (Morphine) 2 mg IV Q4H PRN PRN Reason: Pain, Moderate (4-6) Nicotine (Habitrol) 14 mg TD QDAY ON LICENSE OF [facility] Last Admin: 08/28/17 22:48 Dose: 14 mg Ondansetron HCl (Zofran) 4 mg IV Q8H PRN PRN Reason: Nausea And Vomiting Pantoprazole Sodium (Protonix) 40 mg IV BID ON LICENSE OF [facility] Last Admin: 08/28/17 22:49 Dose: 40 mg Pneumococcal Polyvalent Vaccine (Pneumovax 23) 0.5 ml IM .ONCE ONE Stop: 08/29/17 12:01 Sodium Chloride (Sodium Chloride Flush Syringe 10 Ml) 10 ml IV BID ON LICENSE OF [facility] Last Admin: 08/28/17 22:49 Dose: 10 ml Sodium Chloride (Sodium Chloride Flush Syringe 10 Ml) 10 ml IV PRN PRN PRN Reason: LINE FLUSH Review of Systems - Review of Systems All systems: negative Gastrointestinal: abdominal pain (epigastric), coffee ground emesis Exam - Constitutional Vital Signs: Temp Pulse Resp BP Pulse Ox 98.5 F 60 20 97/44 100 08/29/17 08:01 08/29/17 08:01 08/29/17 08:01 08/29/17 08:01 08/29/17 08:01 General appearance: no acute distress - EENT Eyes: PERRL, EOM intact ENT: hearing intact - Respiratory Respiratory: bilateral: CTA - Cardiovascular Rhythm: regular Heart Sounds: Present: S1 & S2 - Gastrointestinal General gastrointestinal: Present: soft, non-tender, non-distended, normal bowel sounds - Labs CBC & Chem 7: 08/28/17 16:17 08/28/17 16:17 Lab Results: Laboratory Results - last 24 hr 08/28/17 08/28/17 08/28/17 16:17 16:17 16:17 WBC 8.2 RBC 4.80 Hgb 15.4 H Hct 44.9 MCV 94 MCH 32 MCHC 34 RDW 14.9 Plt Count 181 Lymph % (Auto) 27.1 [place] % (Auto) 12.4 H Eos % (Auto) 8.8 H Baso % (Auto) 0.9 Lymph # 2.2 [place] # 1.0 H Eos # 0.7 H Baso # 0.1 Seg Neutrophils % 50.8 Seg Neutrophils # 4.1 PT 12.9 INR 0.93 Sodium 139 Potassium 4.3 Chloride 105.1 Carbon Dioxide 20 L Anion Gap 18 BUN 9 Creatinine 0.8 Estimated GFR > 60 BUN/Creatinine Ratio 11 Glucose 109 H Calcium 8.2 L Assessment and Plan 1.GI bleed 2.coffee-ground emesis 3.abnormal CT -INR 0.93 -HGB 15.4- stable -continue to monitor H/H and transfuse as needed -hold blood thinning medications -no active signs of bleeding this am -currently HD stable -abd CT showed esophageal wall thickening of the distal 3rd of the esophagus and at GE junction -will schedule for EGD today for further evaluation to r/o malignancy vs PUD vs other GI pathology -Keep NPO -continue PPI and supportive care -will follow
[2017-08-29] MEDS: PROTONIX IV SCH (10:55)
[2017-08-29] MEDS: SODIUM CHLORIDE FLUSH SYRINGE 10 ML IV SCH ×2 (10:55→21:21)
[2017-08-29] MEDS: HABITROL TD SCH (10:55)
[2017-08-29] MEDS: D5NS 1,000 ML IV SCH (11:32)
[2017-08-29] MEDS ORDERED: Fluarix Quad 2017-2018(36 MOS+ IM ONE (12:00)
[2017-08-29] MEDS ORDERED: PNEUMOVAX 23 IM ONE (12:00)
[2017-08-29] MEDS ORDERED: XYLOCAINE MPF 2% ONE (14:30)
[2017-08-29] MEDS ORDERED: NACL 0.9% 1000 ML 1,000 ML ONE (14:44)
--- NOTE | 2017-08-29 15:10 | Anesthesia Consultation ---
Anesthesia Consult and Med Hx Date of service: 08/29/17 - Airway Anesthetic Teeth Evaluation: Edentulous ROM Head & Neck: Adequate Mental/Hyoid Distance: Adequate Mallampati Class: Class II Intubation Access Assessment: Probably Good - Pre-Operative Health Status ASA Pre-Surgery Classification: ASA3 - Pulmonary Hx Smoking: Yes Hx Asthma: No COPD: No Hx Pneumonia: No - Cardiovascular System Hx Hypertension: Yes - Central Nervous System Hx Psychiatric Problems: Yes (schizophrenia) - Endocrine Hx End Stage Renal Disease: No Hx Non-Insulin Dependent Diabetes: Yes
--- NOTE | 2017-08-29 15:11 | Anesthesia Day of Surgery ---
Anesthesia Day of Surgery - Day of Surgery Patient Examined: Yes Patient H&P Reviewed: Yes Patient is NPO: Yes
--- NOTE | 2017-08-29 15:13 | Progress Note ---
Assessment and Plan Coffee ground emesis likely due to Upper GI bleed -H/H stable, plan for EGd today -no active signs of bleeding -abd CT showed sophageal wall thickening of the distal 3rd of the esophagus and at GE junction -avoid NSAIDs -continue PPI and supportive care -further recommendations from GI to follow HTN, controlled - cont to monitor BP q4h, adjust med as needed DM, on outpt oral meds - SSI for now, hold oral meds h/o schizophrenia - resume outpt meds DVT Px, SCD Subjective Date of service: 08/29/17 Interval history: Patient seen and examined. Medical records and medication list reviewed. No acute event overnight noted by the RN. Patient denies any chest pain or difficulty breathing. Patient is tolerating clear liquid diet. No obvious active bleeding noted by RN or reported by patient Discussed plan of care at bedside with GI and plan for EGD today. Objective - Exam Narrative Exam: GENERAL: well-developed and well-nourished male lying on bed appeared to be in no discomfort. HEENT: Normocephalic. Atraumatic. No conjunctival congestion or icterus. Patient has moist mucous membranes. NECK: Supple. Trachea midline. CHEST/LUNGS: Clear to auscultated bilaterally, breathing nonlabored. No wheezes crackles or rhonchi. HEART/CARDIOVASCULAR: Regular in rate and rhythm. S1 and S2 positive. ABDOMEN: Abdomen is soft, nontender. Patient has normal bowel sounds. SKIN: There is no rash. Warm and dry. NEURO: No focal motor deficit. Follows command. MUSCULOSKELETAL: No joint effusion or tenderness. EXTRIMITY: No edema, no cyanosis or clubbing. PSYCH: Cooperative. - Constitutional Vitals: Vital Signs - 12hr 08/29/17 08/29/17 08/29/17 05:09 08:01 11:47 Temperature 97.7 F 98.5 F 98.7 F Pulse Rate 65 60 60 Respiratory 16 20 20 Rate Blood Pressure 107/56 97/44 O2 Sat by Pulse 98 100 99 Oximetry 08/29/17 14:45 Temperature 98.3 F Pulse Rate 59 L Respiratory 16 Rate Blood Pressure 107/75 O2 Sat by Pulse 100 Oximetry - Labs CBC & Chem 7: 08/30/17 10:30 08/28/17 16:17 Labs: Abnormal lab results 08/28/17 08/28/17 Range/Units 16:17 16:17 Hgb 15.4 H (11.8-15.2) gm/dl [place] % (Auto) 12.4 H (0.0-7.3) % Eos % (Auto) 8.8 H (0.0-4.3) % [place] # 1.0 H (0.0-0.8) K/mm3 Eos # 0.7 H (0.0-0.4) K/mm3 Carbon Dioxide 20 L (22-30) mmol/L Glucose 109 H (75-100) mg/dL Calcium 8.2 L (8.4-10.2) mg/dL
[2017-08-29] MEDS ORDERED: DIPRIVAN 10 MG/ML IV ONE (15:29)
--- NOTE | 2017-08-29 15:51 | Post Operative Note ---
Pre-op diagnosis: Coffee Ground Emesis Post-op diagnosis: other (Hiatal Hernia, Esophagitis) Findings: 1. LA Grade D Ulcerated Esophagitis, cold bx taken but no obvious mass 2. Apparent large HH, but anatomy distorted from severe esophagitis 3. Mild gastritis (cold bx of antrum) but no ulcer in stomach or duodenum Procedure: EGD with Cold Bx Anesthesia: MAC Surgeon: THA DAVIS Estimated blood loss: minimal Pathology: list (1. Gastric antrum. 2. Lower third of esophagus/esophagitis.) Specimen disposition: to lab Condition: stable Disposition: floor (Recs: 1. Full liquid diet. 2. Protonix daily therapy. 3. D /C NSAIDs. 4. NPO post-Mn with UGI tomorrow to assess anatomy.)
[2017-08-29] MEDS ORDERED: MORPHINE IV PRN (15:56)
[2017-08-29] MEDS: NACL 0.9% 1000 ML 1,000 ML IV SCH (19:41)
[2017-08-29] MEDS: PROTONIX PO SCH (21:20)
--- NOTE | 2017-08-30 10:07 | Gastroenterology Progress Note ---
Assessment and Plan 1.GI bleed 2.coffee-ground emesis 3.abnormal CT -H/H stable- will order repeat CBC this am -no active signs of bleeding -abd CT showed sophageal wall thickening of the distal 3rd of the esophagus and at GE junction -s/p EGD yesterday that revealed ulcerated esophagitis but no obvious mass, large hiatal hernia but anatomy distorted from severe esophagitis, and mild gastritis but no ulcer -bx results pending -UGI pending for today to assess anatomy -avoid NSAIDs -continue PPI and supportive care -further recommendations to follow Subjective Date of service: 08/30/17 Principal diagnosis: GI bleed Interval history: Patient w/o distress. No active signs of bleeding overnight or this am. Denies abd pain or N/V. Objective - Constitutional Vitals: Temp Pulse Resp BP Pulse Ox 99.1 F 61 20 115/59 97 08/30/17 08:05 08/30/17 08:05 08/30/17 08:05 08/30/17 08:05 08/30/17 08:05 General appearance: no acute distress - Respiratory Respiratory: bilateral: CTA - Cardiovascular Rhythm: regular Heart Sounds: Present: S1 & S2 - Gastrointestinal General gastrointestinal: Present: soft, non-tender, non-distended, normal bowel sounds - Labs CBC & Chem 7: 08/28/17 16:17 08/28/17 16:17
[2017-08-30 10:44] LABS: Hematocrit 45.1 % (35.5-45.6); Hemoglobin 14.9 gm/dl (11.8-15.2); Mean Corpuscular HGB Conc 33 % (32-34); Mean Corpuscular Hemoglobin 31 pg (28-32); Mean Corpuscular Volume 95 fl (84-94); Platelet Count 181 K/mm3 (140-440); Red Blood Count 4.75 M/mm3 (3.65-5.03); Red Cell Distribution Width 14.7 % (13.2-15.2)
[2017-08-30] MEDS: HABITROL TD SCH (11:28)
[2017-08-30] MEDS: SODIUM CHLORIDE FLUSH SYRINGE 10 ML IV SCH ×2 (11:30→23:21)
[2017-08-30] MEDS: PROTONIX PO SCH ×2 (11:37→23:20)
[2017-08-30 13:15] LABS: Basophils % (Manual) 0 % (0.0-1.8); Platelet Estimate Cons; RBC Morphology Normal; Total Cells Counted 100
--- NOTE | 2017-08-30 15:10 | Progress Note ---
Assessment and Plan Coffee ground emesis likely due to Upper GI bleed -H/H stable, no active signs of bleeding -abd CT showed sophageal wall thickening of the distal 3rd of the esophagus and at GE junction -s/p EGD 08/29 revealed ulcerated esophagitis but no obvious mass, large hiatal hernia but anatomy distorted from severe esophagitis, and mild gastritis but no ulcer, bx results pending -UGI pending for today to assess anatomy -continue PPI and supportive care, avoid NSAIDs -further recommendations from GI to follow HTN, controlled - cont to monitor BP q4h, adjust med as needed DM, on outpt oral meds - SSI for now, hold oral meds h/o schizophrenia - resume outpt meds DVT Px, SCD Physical exam: GENERAL: well-developed and well-nourished male lying on bed appeared to be in no discomfort. HEENT: Normocephalic. Atraumatic. No conjunctival congestion or icterus. Patient has moist mucous membranes. NECK: Supple. Trachea midline. CHEST/LUNGS: Clear to auscultated bilaterally, breathing nonlabored. No wheezes crackles or rhonchi. HEART/CARDIOVASCULAR: Regular in rate and rhythm. S1 and S2 positive. ABDOMEN: Abdomen is soft, nontender. Patient has normal bowel sounds. SKIN: There is no rash. Warm and dry. NEURO: No focal motor deficit. Follows command. MUSCULOSKELETAL: No joint effusion or tenderness. EXTRIMITY: No edema, no cyanosis or clubbing. PSYCH: Cooperative. Subjective Date of service: 08/30/17 Principal diagnosis: GI bleed Interval history: Patient seen and examined. Medical records and medication list reviewed. No acute event overnight noted by the RN. Patient denies any chest pain or difficulty breathing. Patient is tolerating clear liquid diet. No obvious active bleeding noted by RN or reported by patient plan for UGI series today. Objective - Constitutional Vitals: Vital Signs - 12hr 08/30/17 08/30/17 08/30/17 04:26 08:05 12:24 Temperature 98.6 F 99.1 F 99.3 F Pulse Rate 65 61 66 Respiratory 16 20 18 Rate Blood Pressure 109/67 115/59 127/72 O2 Sat by Pulse 99 97 99 Oximetry - Labs CBC & Chem 7: 08/30/17 10:30 08/28/17 16:17 Labs: Abnormal lab results 08/30/17 Range/Units 10:30 MCV 95 H (84-94) fl Seg Neuts % (Manual) 71.0 H (40.0-70.0) % Lymphocytes % (Manual) 10.0 L (13.4-35.0) % Monocytes % (Manual) 14.0 H (0.0-7.3) % Eosinophils % (Manual) 5.0 H (0.0-4.3) % Lymphocytes # (Manual) 0.8 L (1.2-5.4) K/mm3 Monocytes # (Manual) 1.1 H (0.0-0.8) K/mm3
[2017-08-30] MEDS: NACL 0.9% 1000 ML 1,000 ML IV SCH (15:23)
--- NOTE | 2017-08-31 08:47 | Gastroenterology Progress Note ---
Assessment and Plan 1.GI bleed 2.coffee-ground emesis 3.abnormal CT -H/H stable -no active signs of bleeding -abd CT showed sophageal wall thickening of the distal 3rd of the esophagus and at GE junction -s/p EGD yesterday that revealed ulcerated esophagitis but no obvious mass, large hiatal hernia but anatomy distorted from severe esophagitis, and mild gastritis but no ulcer -bx results pending -UGI pending for today to assess anatomy -avoid NSAIDs -continue PPI and supportive care -further recommendations to follow Subjective Date of service: 08/31/17 Principal diagnosis: GI bleed Interval history: Patient w/o complaints or distress. No active signs of bleeding overnight or this am. Objective - Constitutional Vitals: Temp Pulse Resp BP Pulse Ox 98.0 F 60 18 109/68 97 08/31/17 04:45 08/31/17 04:45 08/31/17 04:45 08/31/17 04:45 08/31/17 04:45 General appearance: no acute distress - Respiratory Respiratory: bilateral: CTA - Cardiovascular Rhythm: regular Heart Sounds: Present: S1 & S2 - Gastrointestinal General gastrointestinal: Present: soft, non-tender, non-distended, normal bowel sounds - Neurologic Neurological: alert and oriented x3 - Labs CBC & Chem 7: 08/30/17 10:30 08/28/17 16:17 Labs: Laboratory Results - last 24 hr 08/30/17 10:30 WBC 7.5 RBC 4.75 Hgb 14.9 Hct 45.1 MCV 95 H MCH 31 MCHC 33 RDW 14.7 Plt Count 181 [place] % (Auto) Consultant Intern Add Manual Diff Complete Total Counted 100 Seg Neuts % (Manual) 71.0 H Band Neutrophils % 0 Lymphocytes % (Manual) 10.0 L Reactive Lymphs % (Man) 0 Monocytes % (Manual) 14.0 H Eosinophils % (Manual) 5.0 H Basophils % (Manual) 0 Metamyelocytes % 0 Myelocytes % 0 Promyelocytes % 0 Blast Cells % 0 Nucleated RBC % Not Reportable Seg Neutrophils # Man 5.3 Band Neutrophils # 0.0 Lymphocytes # (Manual) 0.8 L Abs React Lymphs (Man) 0.0 Monocytes # (Manual) 1.1 H Eosinophils # (Manual) 0.4 Basophils # (Manual) 0.0 Metamyelocytes # 0.0 Myelocytes # 0.0 Promyelocytes # 0.0 Blast Cells # 0.0 WBC Morphology Not Reportable Hypersegmented Neuts Not Reportable Hyposegmented Neuts Not Reportable Hypogranular Neuts Not Reportable Smudge Cells Not Reportable Toxic Granulation Not Reportable Toxic Vacuolation Not Reportable Dohle Bodies Not Reportable Pelger-Huet Anomaly Not Reportable Marlo Rods Not Reportable Platelet Estimate Cons Clumped Platelets Not Reportable Plt Clumps, EDTA Not Reportable Large Platelets Not Reportable Giant Platelets Not Reportable Platelet Satelliting Not Reportable Plt Morphology Comment Not Reportable RBC Morphology Normal Dimorphic RBCs Not Reportable Polychromasia Not Reportable Hypochromasia Not Reportable Poikilocytosis Not Reportable Anisocytosis Not Reportable Microcytosis Not Reportable Macrocytosis Not Reportable Spherocytes Not Reportable Pappenheimer Bodies Not Reportable Sickle Cells Not Reportable Target Cells Not Reportable Tear Drop Cells Not Reportable Ovalocytes Not Reportable Helmet Cells Not Reportable [place] Bodies Not Reportable Nebo Rings Not Reportable [place]leigh Cells Not Reportable Bite Cells Not Reportable Crenated Cell Not Reportable Elliptocytes Not Reportable Acanthocytes (Spur) Not Reportable Rouleaux Not Reportable Hemoglobin C Crystals Not Reportable Schistocytes Not Reportable Malaria parasites Not Reportable Barry Bodies Not Reportable Hem Pathologist Commnt No
[2017-08-31] MEDS: HABITROL TD SCH (10:55)
[2017-08-31] MEDS: PROTONIX PO SCH (10:55)
[2017-08-31] MEDS: SODIUM CHLORIDE FLUSH SYRINGE 10 ML IV SCH (10:58)
--- NOTE | 2017-08-31 12:07 | Fluoroscopy Report ---
Air contrast upper GI: History: Distorted anatomy on EGD. Findings: There was minimal delay in transit of barium through distal third of the esophagus. There is persistent narrowing noted of the distal third of the esophagus. The mucosal pattern appears to be mildly irregular. There is small sliding hiatal hernia with mild reflux. Stomach mucosal pattern is normal. No extrinsic or intrinsic filling defects are noted. No drainable discrete appears unremarkable. No definite evidence of ulcer. Impression: Distal third of esophagus remains persistently in spasm with mucosal irregularity may represent esophagitis. Small hiatal hernia mild reflux. No definite evidence of duodenal ulcer.
--- NOTE | 2017-08-31 13:35 | Discharge Summary ---
Providers - Providers Date of Admission: 08/28/17 13:41 Date of discharge: 08/31/17 Attending physician: HUGO JAMES 08/28/17 14:43 Consult to Physician [CONS] Routine Comment: Consulting Provider: BALDEMAR LITTLE Physician Instructions: Reason For Exam: gi BLEED Primary care physician: MICHAEL TEMPLE Hospitalization Hospital course: Discharge Diagnosis: Coffee ground emesis likely due to Upper GI bleed -H/H stable, no active signs of bleeding -abd CT showed sophageal wall thickening of the distal 3rd of the esophagus and at GE junction -s/p EGD 08/29 revealed ulcerated esophagitis but no obvious mass, large hiatal hernia but anatomy distorted from severe esophagitis, and mild gastritis but no ulcer, bx results pending -UGI UGI shows hiatal hernia and reflux/narrowing, but not severe/no obstruction -continue PPI, avoid NSAIDs - GI cleared for discharge HTN, controlled - cont to monitor BP q4h, adjust med as needed DM, on outpt oral meds - SSI for now, hold oral meds h/o schizophrenia - resume outpt meds DVT Px, SCD Physical exam: GENERAL: well-developed and well-nourished male lying on bed appeared to be in no discomfort. HEENT: Normocephalic. Atraumatic. No conjunctival congestion or icterus. Patient has moist mucous membranes. NECK: Supple. Trachea midline. CHEST/LUNGS: Clear to auscultated bilaterally, breathing nonlabored. No wheezes crackles or rhonchi. HEART/CARDIOVASCULAR: Regular in rate and rhythm. S1 and S2 positive. ABDOMEN: Abdomen is soft, nontender. Patient has normal bowel sounds. SKIN: There is no rash. Warm and dry. NEURO: No focal motor deficit. Follows command. MUSCULOSKELETAL: No joint effusion or tenderness. EXTRIMITY: No edema, no cyanosis or clubbing. PSYCH: Cooperative. Disposition: - TO HOME OR SELFCARE Time spent for discharge: 32 minutes Core Measure Documentation - Palliative Care Palliative Care/ Comfort Measures: Not Applicable - Core Measures Any of the following diagnoses?: none Exam - Constitutional Vitals: Temp Pulse Resp BP Pulse Ox 98.0 F 62 18 109/68 95 08/31/17 04:45 08/31/17 07:23 08/31/17 04:45 08/31/17 04:45 08/31/17 07:23 Plan Activity: advance as tolerated Weight Bearing Status: Weight Bear as Tolerated Diet: low fat, low salt Additional Instructions: f/u with GI in 2 weeks Follow up with: MICHAEL TEMPLE MD [Primary Care Provider] - 7 Days Prescriptions: Pantoprazole [Protonix TAB] 40 mg PO BID #60 tablet
[2017-08-31] MEDS ORDERED: AMBIEN PO PRN (16:56)
[2017-08-31 17:01] VITALS: BP 120/69
== END 2017-08-31 17:02 | disposition home or self-care (01) | DRG 379 ==
LOC: CT 10:28 → 3A 13:41
PROVIDERS: ADMIT Internal Medicine; ATTEND Internal Medicine
PROC: 0DB38ZX Excision of Lower Esophagus, Via Natural or Artificial Opening Endoscopic, Diagnostic (ICD-10-PCS; principal; 2017-08-29)
PROC: 0DB68ZX Excision of Stomach, Via Natural or Artificial Opening Endoscopic, Diagnostic (ICD-10-PCS; 2017-08-29)
PROC: 3E0234Z Introduction of Serum, Toxoid and Vaccine into Muscle, Percutaneous Approach (ICD-10-PCS; 2017-08-29)
DX: K29.71 Gastritis, unspecified, with bleeding (principal); K59.04 Chronic idiopathic constipation; E11.9 Type 2 diabetes mellitus without complications; F20.9 Schizophrenia, unspecified; K44.9 Diaphragmatic hernia without obstruction or gangrene; K20.9 Esophagitis, unspecified; E66.9 Obesity, unspecified; F17.200 Nicotine dependence, unspecified, uncomplicated; R63.0 Anorexia; E56.9 Vitamin deficiency, unspecified; I10 Essential (primary) hypertension; Z68.32 Body mass index [BMI] 32.0-32.9, adult; Z23 Encounter for immunization
CPT/HCPCS: 36415; 74177; 74247; 80048; 85007; 85014; 85018; 85025; 85610; 88305; 88312; 88342; 90686; 90732; C9113; J2704; J7030; J7042; Q9967

== ENCOUNTER 2018-11-19 04:36 | Emergency (ER) | payer MEDICARE ==
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
== END 2018-11-19 08:50 | disposition home or self-care (01) ==
LOC: ED 04:36
DX: R07.0 Pain in throat (principal); I10 Essential (primary) hypertension; E11.9 Type 2 diabetes mellitus without complications; F20.9 Schizophrenia, unspecified; F17.200 Nicotine dependence, unspecified, uncomplicated; Z79.899 Other long term (current) drug therapy
CPT/HCPCS: 82962

== ENCOUNTER 2019-11-28 20:00 | Emergency (ER) | payer MEDICARE ==
[2019-11-28 20:29] VITALS: BP 191/105
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
== END 2019-11-28 23:55 | disposition home or self-care (01) ==
LOC: ED 20:00
DX: S09.90XA Unspecified injury of head, initial encounter (principal); I10 Essential (primary) hypertension; E11.9 Type 2 diabetes mellitus without complications; F20.9 Schizophrenia, unspecified; F17.200 Nicotine dependence, unspecified, uncomplicated; Z79.899 Other long term (current) drug therapy; Y04.2XXA Assault by strike against or bumped into by another person, initial encounter; Y93.89 Activity, other specified; Y92.89 Other specified places as the place of occurrence of the external cause; Y99.8 Other external cause status
CPT/HCPCS: 99282